=== PATIENT | female | born 1990 | race Caucasian/White ===

== ENCOUNTER 2016-12-26 06:56 | Emergency (ER) | payer OTHER ==
[~2016-12-26] VITALS: Ht 167.6 cm; Wt 81.6 kg
[~2016-12-26 06:56] MED LIST: ACET50TA PO; DOCU10ELUD PO; FERR325T3 PO; FIOR1CAP PO; IBUP80TA PO; LEVO125T3 PO; LEVO200T3 PO
[2016-12-26] MEDS ORDERED: NAPROXEN 250 MG TAB PO ONE (07:30)
[2016-12-26] MEDS ORDERED: MOBI7.5T10 PO (08:04)
[2016-12-26 08:11] VITALS: BP 135/87
--- NOTE | 2016-12-26 20:45 | REP ---
Right forearm series: Two views. History: Trauma. Findings: Two views of the right forearm demonstrate normal bones, joints, and soft tissues. No fracture or subluxation is seen. Impression: Negative right forearm views. Signed by Mansoor Stanley MD 12/27/2016 01:32 P
== END 2016-12-26 08:17 | disposition home or self-care (01) ==
LOC: M ED 07:23
DX: S50.11XA Contusion of right forearm, initial encounter (principal); W50.0XXA Accidental hit or strike by another person, initial encounter; Y92.239 Unspecified place in hospital as the place of occurrence of the external cause; Y93.89 Activity, other specified; Y99.0 Civilian activity done for income or pay; Z79.899 Other long term (current) drug therapy; Z91.040 Latex allergy status

== ENCOUNTER → 2016-12-28 | Outpatient (CLI) | payer OTHER ==
[~2016-12-28] MED LIST changes: +MOBI7.5T10 PO
[2016-12-28 10:44] LABS: ALKALINE PHOSPHATASE 43 U/L (45-117); ALT/SGPT 18 U/L (12-78); ANION GAP 6 MEQ/L (8-16); AST/SGOT 8 U/L (15-37); BILIRUBIN,TOTAL 0.7 MG/DL (0.2-1.0); BLOOD UREA NITROGEN 10 MG/DL (7-18); CALCIUM LEVEL 8.7 MG/DL (8.5-10.1); CARBON DIOXIDE LEVEL 26 MEQ/L (21-32); CHLORIDE LEVEL 108 MEQ/L (98-107); CHOLESTEROL LEVEL 172 MG/DL (<200); CREATININE FOR GFR 0.59 MG/DL (0.55-1.02); GLOMERULAR FILTRATION RATE > 60.0 (>60); GLUCOSE, FASTING 79 MG/DL (70-105); POTASSIUM SERUM 4.2 MEQ/L (3.5-5.1); SODIUM LEVEL 140 MEQ/L (136-145); TRIGLYCERIDES LEVEL 71 MG/DL (<150)
[2016-12-28 10:45] LABS: ALBUMIN 3.8 GM/DL (3.2-5.2); ALBUMIN/GLOBULIN RATIO 1.15 (1.00-1.93); THYROXINE (T4) 6.6 UG/DL (4.5-12.0); TOTAL PROTEIN 7.1 GM/DL (6.4-8.2)
== END ==
LOC: M LAB 09:31
PROVIDERS: ATTEND Physician Assistant Medical
DX: E03.9 Hypothyroidism, unspecified (principal); E78.2 Mixed hyperlipidemia; E55.9 Vitamin D deficiency, unspecified

== ENCOUNTER 2017-03-05 20:27 | Emergency (ER) | payer OTHER ==
[~2017-03-05] VITALS: Ht 167.6 cm; Wt 83.2 kg
[~2017-03-05 20:27] MED LIST changes: -LEVO125T3 PO; +LEVO125T4 PO; +MOBI4TAB PO; -MOBI7.5T10 PO
[2017-03-05 20:28] VITALS: BP 134/84
[2017-03-05] MEDS ORDERED: MAGICMW MT (21:26)
[2017-03-05] MEDS ORDERED: FLON1SPR (21:26)
[2017-03-05] MEDS ORDERED: MAGIC MOUTHWASH SUSPENSION BTL SS ONE (21:30)
[2017-03-05] MEDS: MAGIC MOUTHWASH SUSPENSION BTL SS ONE (21:30)
== END 2017-03-05 21:56 | disposition home or self-care (01) ==
LOC: M ED 20:27
DX: J06.9 Acute upper respiratory infection, unspecified (principal); J02.9 Acute pharyngitis, unspecified; Z91.040 Latex allergy status

== ENCOUNTER → 2017-05-09 | Outpatient (CLI) | payer OTHER ==
[~2017-05-09] MED LIST changes: +FLON1SPR; +MAGICMW MT
[2017-05-09 08:54] LABS: THYROXINE (T4) 6.1 UG/DL (4.5-12.0)
== END ==
LOC: M LAB 07:48
PROVIDERS: ATTEND Physician Assistant Medical
DX: E03.9 Hypothyroidism, unspecified (principal); E55.9 Vitamin D deficiency, unspecified

== ENCOUNTER 2017-06-20 01:26 | Emergency (ER) | payer OTHER, SELFPAY ==
[~2017-06-20] VITALS: Ht 167.6 cm; Wt 84.1 kg
[2017-06-20 01:26] VITALS: BP 132/88
[2017-06-20] MEDS ORDERED: MEDR4PAK PO (01:48)
[2017-06-20] MEDS ORDERED: AMOX500C PO (01:48)
[2017-06-20] MEDS ORDERED: AMOXICILLIN 500 MG CAP PO ONE (02:00)
[2017-06-20] MEDS ORDERED: IBUPROFEN 600 MG TAB PO ONE (02:00)
== END 2017-06-20 02:05 | disposition home or self-care (01) ==
LOC: M ED 01:26
DX: J02.0 Streptococcal pharyngitis (principal); E03.9 Hypothyroidism, unspecified; Z79.899 Other long term (current) drug therapy; Z91.040 Latex allergy status

== ENCOUNTER 2017-07-03 21:13 | Emergency (ER) | payer OTHER, SELFPAY ==
[~2017-07-03] VITALS: Ht 167.6 cm; Wt 83.6 kg
[~2017-07-03 21:13] MED LIST changes: +AMOX500C PO; +MEDR4PAK PO
[2017-07-03] MEDS ORDERED: NS 1,000 ML IV ONE (21:45)
[2017-07-03] MEDS ORDERED: METOCLOPRAMIDE INJ 10MG/2ML VIAL (J2765) IV ONE (21:45)
[2017-07-03] MEDS ORDERED: diphenhydrAMINE INJ 50MG/ML VIAL (J1200) IV ONE (21:45)
[2017-07-03] MEDS ORDERED: MORPHINE 4 MG/ML 1ML SYRINGE IV ONE (21:45)
[2017-07-03 22:43] LABS: BASO # 0.1 10^3/uL (0.0-0.2); BASO % 0.6 % (0.0-1.0); EOS # 0.4 10^3/uL (0.0-0.50); EOS % 2.4 % (0.0-3.0); IMMATURE GRANULOCYTE % 0.3 % (0-0); LYMPH # 3.2 10^3/uL (1.5-6.5); LYMPH % 18.3 % (24.0-44.0); MEAN CORPUSCULAR HEMOGLOBIN 28.1 pg (27.0-33.0); MEAN CORPUSCULAR HGB CONC 33.2 g/dl (32.0-36.5); MEAN CORPUSCULAR VOLUME 84.5 fl (80.0-96.0); MONO # 0.8 10^3/uL (0.0-0.8); MONO % 4.6 % (0.0-5.0); NEUTROPHILS # 12.7 10^3/uL (1.8-7.7); NEUTROPHILS % 73.8 % (36.0-66.0); PLATELET COUNT, AUTOMATED 415 10^3/uL (150-450); RED CELL DISTRIBUTION WIDTH 12.7 % (11.5-14.5); WHITE BLOOD COUNT 17.2 10^3/uL (4.0-10.0)
[2017-07-03 22:47] LABS: MUCUS, URINE RFX SMALL (NEGATIVE); SPECIFIC GRAVITY UR AUTO RFX 1.016 (1.002-1.035); SQUAM EPITHELIAL CELL UR AURFX 19 /HPF (0-6)
[2017-07-03 23:03] LABS: ANION GAP 8 MEQ/L (8-16); BLOOD UREA NITROGEN 6 MG/DL (7-18); CALCIUM LEVEL 8.7 MG/DL (8.5-10.1); CARBON DIOXIDE LEVEL 26 MEQ/L (21-32); CHLORIDE LEVEL 104 MEQ/L (98-107); CREATININE FOR GFR 0.64 MG/DL (0.55-1.02); GLOMERULAR FILTRATION RATE > 60.0 (>60); GLUCOSE, FASTING 88 MG/DL (70-105); POTASSIUM SERUM 3.6 MEQ/L (3.5-5.1); SODIUM LEVEL 138 MEQ/L (136-145)
--- NOTE | 2017-07-03 23:10 | REPUSA ---
CT of the head Clinical history: Headache. Comparison: 02/11/2013. Technique: Multiple axial CT images were obtained through the head without administration of contrast . Findings: The ventricles and sulci are symmetric bilaterally. There is no evidence of acute hemorrhag e or infarct. There is no midline shift, mass effect, or extra-axial fluid collection. The osseous st ructures are unremarkable. The visualized paranasal sinuses and mastoid air cells are clear. Impression: Negative study.
[2017-07-03 23:40] LABS: ERYTHROCYTE SEDIMENTATION RATE 33 mm/hr (0-20)
[2017-07-03] MEDS ORDERED: ZOFR4TAB3 PO (23:50)
[2017-07-03] MEDS ORDERED: CIPR-249 PO (23:50)
[2017-07-03 23:55] VITALS: BP 117/69
[2017-07-04] MEDS ORDERED: CIPROFLOXACIN 500 MG TAB PO ONE
[2017-07-04] MEDS ORDERED: NORCO 5/325MG TABLET (BULK FOR ED) PO ONE
== END 2017-07-04 00:06 | disposition home or self-care (01) ==
LOC: M ED 21:13
DX: J01.90 Acute sinusitis, unspecified (principal); I10 Essential (primary) hypertension
CPT/HCPCS: 70450; 80048; 81001; 81025; 85025; 85652; 86140; 87086; 96361; 96374; 96375; 99284; J1200; J2765

== ENCOUNTER → 2017-09-25 | Outpatient (CLI) | payer OTHER, MEDICAID ==
[2017-09-25 14:02] LABS: BASO # 0.1 10^3/uL (0.0-0.2); BASO % 0.9 % (0.0-1.0); EOS # 0.5 10^3/uL (0.0-0.50); EOS % 3.7 % (0.0-3.0); HEMATOCRIT 34.4 % (36.0-47.0); HEMOGLOBIN 11.4 g/dl (12.0-16.0); IMMATURE GRANULOCYTE % 0.5 % (0-3.0); LYMPH # 1.7 10^3/uL (1.5-6.5); LYMPH % 14.1 % (24.0-44.0); MEAN CORPUSCULAR HGB CONC 33.1 g/dl (32.0-36.5); MEAN CORPUSCULAR VOLUME 84.5 fl (80.0-96.0); MONO # 0.5 10^3/uL (0.0-0.8); MONO % 3.9 % (0.0-5.0); NEUTROPHILS # 9.4 10^3/uL (1.8-7.7); NEUTROPHILS % 76.9 % (36.0-66.0); PLATELET COUNT, AUTOMATED 364 10^3/uL (150-450); RED BLOOD COUNT 4.07 10^6/uL (4.00-5.40); WHITE BLOOD COUNT 12.2 10^3/uL (4.0-10.0)
[2017-09-25 16:04] LABS: CHLAMYDIA DNA AMPLIFICATION NEGATIVE (NEGATIVE); GC DNA AMPLIFICATION NEGATIVE (NEGATIVE)
[2017-09-26 10:14] LABS: LUTEINIZING HORMONE < 0.1 mIU/mL
[2017-09-26 10:25] LABS: RUBELLA IgG QUALITATIVE IMMUNE (IMMUNE)
[2017-09-26 10:40] LABS: FOLLICLE STIMULATING HORMONE < 0.3 mIU/mL
[2017-09-26 10:50] LABS: HBsAg Prenatal NEGATIVE (NEGATIVE)
[2017-09-26 10:54] LABS: HEPATITIS C VIRUS ABY INDEX 0.1 INDEX (<0.8)
[2017-09-26 10:55] LABS: HIV 1&2 SCREEN CENTAUR NEGATIVE (NEGATIVE)
== END ==
LOC: M SMT 10:19
DX: Z36.89 Encounter for other specified antenatal screening (principal); Z3A.13 13 weeks gestation of pregnancy
CPT/HCPCS: 83001

== ENCOUNTER → 2017-10-23 | Outpatient (CLI) | payer OTHER ==
[2017-10-23 22:02] LABS: FREE T4 0.86 NG/DL (0.76-1.46)
== END ==
LOC: M LAB 18:29
DX: E03.9 Hypothyroidism, unspecified (principal)
CPT/HCPCS: 84443

== ENCOUNTER → 2017-11-08 | Outpatient (REF) | payer OTHER | LOC: M LAB REF 13:21 | DX: Z34.82 Encounter for supervision of other normal pregnancy, second trimester (principal) ==

== ENCOUNTER 2017-12-05 12:41 | Inpatient (IN) | payer OTHER ==
[2017-12-05] MEDS: LACTATED RINGER'S 1000 ML IV (13:03)
[2017-12-05 13:20] LABS: HEMATOCRIT 30.1 % (36.0-47.0); HEMOGLOBIN 10.3 g/dl (12.0-15.5); MEAN CORPUSCULAR HEMOGLOBIN 29.2 pg (27.0-33.0); MEAN CORPUSCULAR HGB CONC 34.2 g/dl (32.0-36.5); MEAN CORPUSCULAR VOLUME 85.3 fl (80.0-96.0); PLATELET COUNT, AUTOMATED 329 10^3/uL (150-450); RED BLOOD COUNT 3.53 10^6/uL (4.00-5.40); RED CELL DISTRIBUTION WIDTH 13.7 % (11.5-14.5)
[2017-12-05] MEDS: MORPHINE 4 MG/ML 1ML VIAL/SYRINGE (J2270) IV (13:21)
[2017-12-05] MEDS: PROMETHAZINE INJ 25 MG/ML VIAL (J2550) IV (13:25)
[2017-12-05 13:26] LABS: APPEARANCE, URINE CLOUDY (CLEAR); BACTERIA, URINE AUTO 2+ (NEGATIVE); BILIRUBIN, URINE AUTO NEGATIVE (NEGATIVE); BLOOD, URINE BLOOD 2+ (NEGATIVE); COLOR, URINE YELLOW (YELLOW); GLUCOSE, URINE (UA) AUTO NEGATIVE (NEGATIVE); KETONE, URINE AUTO NEGATIVE (NEGATIVE); LEUKOCYTE ESTERASE, URINE AUTO 3+ (NEGATIVE); MUCUS, URINE SMALL (NEGATIVE); NITRITE, URINE AUTO NEGATIVE (NEGATIVE); PROTEIN, URINE AUTO 1+ mg/dL (NEGATIVE); RBC, URINE AUTO 39 /HPF (0-3); SPECIFIC GRAVITY URINE AUTO 1.008 (1.002-1.035); SQUAMOUS EPITHELIAL CELL UR AU 3 /HPF (0-6); UROBILINOGEN, URINE AUTO 0.2 mg/dL (0.0-2.0); WBC, URINE AUTO TNTC /HPF (0-3)
[2017-12-05] MEDS: LR 1,000 ML IV (14:05)
[2017-12-05] MEDS ORDERED: ONDANSETRON 4MG/2ML VIAL (J2405) As Ordered (14:59)
[2017-12-05] MEDS: ONDANSETRON 4MG/2ML VIAL (J2405) IV ×2 (15:10→22:56)
[2017-12-05] MEDS: MORPHINE 10 MG/ML 1ML VIAL (J2270) SC (15:10)
[2017-12-05] MEDS: MORPHINE 10 MG/ML 1ML VIAL (J2270) IV (15:11)
[2017-12-05] MEDS: TAMSULOSIN 0.4 MG CAP PO (17:28)
[2017-12-05] MEDS: cefTRIAXone SOD 1 GM in D5W MINI-BAG PLUS 50 ML IV (18:22)
[2017-12-05] MEDS: PERCOCET 5MG/325MG TAB PO ×2 (18:24→22:28)
[2017-12-05 21:02] LABS: ANION GAP 10 MEQ/L (8-16); BLOOD UREA NITROGEN 4 MG/DL (7-18); CALCIUM LEVEL 7.9 MG/DL (8.5-10.1); CARBON DIOXIDE LEVEL 21 MEQ/L (21-32); CHLORIDE LEVEL 107 MEQ/L (98-107); CREATININE FOR GFR 0.64 MG/DL (0.55-1.30); GLOMERULAR FILTRATION RATE > 60.0 (>60); GLUCOSE, FASTING 124 MG/DL (70-100); POTASSIUM SERUM 3.5 MEQ/L (3.5-5.1); SODIUM LEVEL 138 MEQ/L (136-145)
[2017-12-05 21:12] LABS: INR 1.07
[2017-12-05 21:13] LABS: PARTIAL THROMBOPLASTIN TIME 28.4 SECONDS (26.8-37.9)
[2017-12-05] MEDS: LEVOTHYROXINE 100MCG TABLET (0.1MG) PO (22:20)
[2017-12-05] MEDS: NS 500 ML IV (23:45)
[2017-12-05] MEDS: ACETAMINOPHEN 500 MG TAB PO (23:53)
[2017-12-06] MEDS: ONDANSETRON 4MG/2ML VIAL (J2405) IV (02:47)
[2017-12-06] MEDS: PERCOCET 5MG/325MG TAB PO ×3 (02:48→18:03)
[2017-12-06 06:50] LABS: HEMATOCRIT 26.2 % (36.0-47.0); HEMOGLOBIN 8.9 g/dl (12.0-15.5); MEAN CORPUSCULAR HEMOGLOBIN 29.3 pg (27.0-33.0); MEAN CORPUSCULAR VOLUME 86.2 fl (80.0-96.0); PLATELET COUNT, AUTOMATED 238 10^3/uL (150-450); RED BLOOD COUNT 3.04 10^6/uL (4.00-5.40); RED CELL DISTRIBUTION WIDTH 13.8 % (11.5-14.5); WHITE BLOOD COUNT 23.1 10^3/uL (4.0-10.0)
[2017-12-06] MEDS: NS 1,000 ML IV ×2 (07:00→22:18)
[2017-12-06] MEDS ORDERED: LIDOCAINE 1% MDV 20ML VIAL As Ordered (09:59)
[2017-12-06] MEDS ORDERED: ISOVUE-300 61% 50ML VIAL (Q9967) As Ordered (10:00)
[2017-12-06] MEDS ORDERED: fentaNYL 100 MCG/2 ML INJECTION (J3010) As Ordered ×2 (10:12→10:48)
[2017-12-06] MEDS: ACETAMINOPHEN 500 MG TAB PO (11:41)
[2017-12-06] MEDS ORDERED: ACETAMINOPHEN 500 MG TAB As Ordered (11:44)
[2017-12-06] MEDS: MORPHINE 4 MG/ML 1ML VIAL/SYRINGE (J2270) IV ×2 (12:47→14:55)
[2017-12-06] MEDS: cefTRIAXone SOD 1 GM in D5W MINI-BAG PLUS 50 ML IV (18:03)
[2017-12-06] MEDS: TAMSULOSIN 0.4 MG CAP PO (18:03)
[2017-12-06] MEDS: LEVOTHYROXINE 100MCG TABLET (0.1MG) PO (22:18)
[2017-12-06] MEDS: diphenhydrAMINE 25 MG CAP PO (22:32)
[2017-12-07] MEDS: NS 1,000 ML IV ×3 (00:30→18:16)
[2017-12-07] MEDS: PERCOCET 5MG/325MG TAB PO ×3 (00:48→20:22)
[2017-12-07] MEDS: ONDANSETRON 4MG/2ML VIAL (J2405) IV ×2 (04:35→20:21)
[2017-12-07] MEDS: MORPHINE 4 MG/ML 1ML VIAL/SYRINGE (J2270) IV ×4 (04:36→22:58)
[2017-12-07 08:00] LABS: HEMATOCRIT 24.1 % (36.0-47.0); MEAN CORPUSCULAR HEMOGLOBIN 29.3 pg (27.0-33.0); MEAN CORPUSCULAR HGB CONC 33.2 g/dl (32.0-36.5); MEAN CORPUSCULAR VOLUME 88.3 fl (80.0-96.0); PLATELET COUNT, AUTOMATED 217 10^3/uL (150-450); RED BLOOD COUNT 2.73 10^6/uL (4.00-5.40); RED CELL DISTRIBUTION WIDTH 14.1 % (11.5-14.5); WHITE BLOOD COUNT 12.1 10^3/uL (4.0-10.0)
[2017-12-07] MEDS: TAMSULOSIN 0.4 MG CAP PO (09:24)
[2017-12-07] MEDS: ACETAMINOPHEN 500 MG TAB PO ×2 (10:17→17:27)
[2017-12-07] MEDS: cefTRIAXone SOD 1 GM in D5W MINI-BAG PLUS 50 ML IV (18:15)
[2017-12-07] MEDS: LEVOTHYROXINE 100MCG TABLET (0.1MG) PO (20:39)
[2017-12-07] MEDS: valACYclovir HCL 500 MG TAB PO (22:51)
[2017-12-08] MEDS: ONDANSETRON 4MG/2ML VIAL (J2405) IV (02:46)
[2017-12-08] MEDS: PERCOCET 5MG/325MG TAB PO ×2 (02:47→08:06)
[2017-12-08] MEDS: MORPHINE 4 MG/ML 1ML VIAL/SYRINGE (J2270) IV (03:19)
[2017-12-08] MEDS: valACYclovir HCL 500 MG TAB PO (08:04)
[2017-12-08] MEDS ORDERED: valACYclovir HCL 500 MG TAB PO (09:00)
== END 2017-12-08 08:10 | disposition home or self-care (01) | DRG 951 ==
LOC: M LDO 12:41 → M LDI 12-06 07:28 → M OBS 12-07 08:03
PROC: 0T9030Z Drainage of Right Kidney with Drainage Device, Percutaneous Approach (ICD-10-PCS; principal; 2017-12-06)
DX: O23.02 Infections of kidney in pregnancy, second trimester (principal); N13.30 Unspecified hydronephrosis; Z3A.23 23 weeks gestation of pregnancy; E03.9 Hypothyroidism, unspecified; O99.282 Endocrine, nutritional and metabolic diseases complicating pregnancy, second trimester; N10 Acute pyelonephritis

== ENCOUNTER 2017-12-25 20:22 | Outpatient (CLI) | payer OTHER ==
[2017-12-25] MEDS ORDERED: MORPHINE 4 MG/ML 1ML VIAL/SYRINGE (J2270) IV (21:00)
[2017-12-25] MEDS ORDERED: PROMETHAZINE INJ 25 MG/ML VIAL (J2550) IV (21:00)
== END 2017-12-25 22:23 | disposition home or self-care (01) ==
LOC: M LDO 20:22
DX: O26.832 Pregnancy related renal disease, second trimester (principal); Z43.6 Encounter for attention to other artificial openings of urinary tract; O99.282 Endocrine, nutritional and metabolic diseases complicating pregnancy, second trimester; Z79.2 Long term (current) use of antibiotics; Z79.899 Other long term (current) drug therapy; Z3A.26 26 weeks gestation of pregnancy
CPT/HCPCS: 59025

== ENCOUNTER → 2018-01-02 | Outpatient (CLI) | payer OTHER ==
[2018-01-02 12:28] LABS: HEMATOCRIT 29.3 % (36.0-47.0); HEMOGLOBIN 9.9 g/dl (12.0-15.5); MEAN CORPUSCULAR HEMOGLOBIN 28.3 pg (27.0-33.0); MEAN CORPUSCULAR HGB CONC 33.8 g/dl (32.0-36.5); MEAN CORPUSCULAR VOLUME 83.7 fl (80.0-96.0); PLATELET COUNT, AUTOMATED 352 10^3/uL (150-450); RED CELL DISTRIBUTION WIDTH 13.6 % (11.5-14.5); WHITE BLOOD COUNT 11.2 10^3/uL (4.0-10.0)
== END ==
LOC: M LAB 11:59
DX: Z34.82 Encounter for supervision of other normal pregnancy, second trimester (principal); Z36.89 Encounter for other specified antenatal screening
CPT/HCPCS: 85027

== ENCOUNTER → 2018-01-02 | Outpatient (CLI) | payer OTHER ==
[2018-01-02 13:04] LABS: ALT/SGPT 20 U/L (12-78); AST/SGOT 9 U/L (7-37); BILIRUBIN,TOTAL 0.2 MG/DL (0.2-1.0); CREATININE FOR GFR 0.44 MG/DL (0.55-1.30); FREE T4 0.73 NG/DL (0.76-1.46); GLOMERULAR FILTRATION RATE > 60.0 (>60); LDH LACTATE DEHYDROGENASE 132 U/L (84-246); URIC ACID 4.1 MG/DL (2.6-6.0)
== END ==
LOC: M LAB 11:54
DX: Z34.82 Encounter for supervision of other normal pregnancy, second trimester (principal); Z36.89 Encounter for other specified antenatal screening
CPT/HCPCS: 84460

== ENCOUNTER → 2018-01-03 | Outpatient (CLI) | payer OTHER ==
[~2018-01-03] MED LIST changes: -ACET50TA PO; -AMOX500C PO; -DOCU10ELUD PO; -FERR325T3 PO; -FIOR1CAP PO; -FLON1SPR; -IBUP80TA PO; +ISOVUE-300 61% 50ML VIAL (Q9967) As Ordered; -LEVO125T4 PO; -LEVO200T3 PO; +LIDOCAINE 2% MDV 20 ML VIAL As Ordered; -MAGICMW MT; -MEDR4PAK PO; -MOBI4TAB PO
== END ==
LOC: M RADPRO 14:02
DX: N13.30 Unspecified hydronephrosis (principal); Z79.899 Other long term (current) drug therapy; Z91.040 Latex allergy status
CPT/HCPCS: 50435

== ENCOUNTER 2018-01-12 22:38 | Emergency (ER) | payer OTHER ==
[2018-01-13] MEDS ORDERED: NEOSPORIN OINT 0.9 GM PKT (FLOOR STOCK) As Ordered (00:18)
[2018-01-13] MEDS ORDERED: NEOSPORIN TOP OINT 15GM TOP (00:30)
[2018-01-13] MEDS: NEOSPORIN OINT 0.9 GM PKT (FLOOR STOCK) TOP (00:59)
== END 2018-01-13 02:19 | disposition home or self-care (01) ==
LOC: M ED 22:38
DX: T83.092A Other mechanical complication of nephrostomy catheter, initial encounter (principal); Y92.9 Unspecified place or not applicable; Y93.9 Activity, unspecified; N13.30 Unspecified hydronephrosis; Z79.899 Other long term (current) drug therapy; Z91.040 Latex allergy status
CPT/HCPCS: 99283

== ENCOUNTER 2018-01-15 13:26 | Outpatient (CLI) | payer OTHER | END 2018-01-15 15:09 | disposition home or self-care (01) | LOC: M LDO 13:26 | DX: O26.893 Other specified pregnancy related conditions, third trimester (principal); Z3A.29 29 weeks gestation of pregnancy; Z98.890 Other specified postprocedural states; N13.30 Unspecified hydronephrosis | CPT/HCPCS: 59025 ==

== ENCOUNTER → 2018-01-15 | Outpatient (CLI) | payer OTHER ==
[~2018-01-15] MED LIST changes: -LIDOCAINE 2% MDV 20 ML VIAL As Ordered
== END ==
LOC: M RAD 11:51
DX: N13.30 Unspecified hydronephrosis (principal)
CPT/HCPCS: Q9967

== ENCOUNTER 2018-01-25 21:39 | Outpatient (CLI) | payer OTHER ==
[2018-01-25] MEDS: PERCOCET 5MG/325MG TAB PO (22:30)
[2018-01-25 23:47] LABS: BASO # 0.1 10^3/uL (0.0-0.2); BASO % 0.8 % (0.0-1.0); EOS # 0.7 10^3/uL (0.0-0.50); EOS % 5.1 % (0.0-3.0); HEMATOCRIT 29.5 % (36.0-47.0); HEMOGLOBIN 9.7 g/dl (12.0-15.5); IMMATURE GRANULOCYTE % 0.4 % (0-3.0); LYMPH % 22.3 % (24.0-44.0); MEAN CORPUSCULAR HGB CONC 32.9 g/dl (32.0-36.5); MEAN CORPUSCULAR VOLUME 82.2 fl (80.0-96.0); MONO # 0.8 10^3/uL (0.0-0.8); MONO % 5.6 % (0.0-5.0); NEUTROPHILS # 8.9 10^3/uL (1.8-7.7); NEUTROPHILS % 65.8 % (36.0-66.0); PLATELET COUNT, AUTOMATED 375 10^3/uL (150-450); RED BLOOD COUNT 3.59 10^6/uL (4.00-5.40); RED CELL DISTRIBUTION WIDTH 13.7 % (11.5-14.5); WHITE BLOOD COUNT 13.6 10^3/uL (4.0-10.0)
[2018-01-26 00:15] LABS: ANION GAP 8 MEQ/L (8-16); BLOOD UREA NITROGEN 5 MG/DL (7-18); CALCIUM LEVEL 8.2 MG/DL (8.5-10.1); CARBON DIOXIDE LEVEL 22 MEQ/L (21-32); CHLORIDE LEVEL 108 MEQ/L (98-107); CREATININE FOR GFR 0.56 MG/DL (0.55-1.30); GLOMERULAR FILTRATION RATE > 60.0 (>60); GLUCOSE, FASTING 86 MG/DL (70-100); POTASSIUM SERUM 3.7 MEQ/L (3.5-5.1); SODIUM LEVEL 138 MEQ/L (136-145)
[2018-01-26] MEDS: CEPHALEXIN 500 MG CAP PO ×2 (01:04→07:42)
[2018-01-26] MEDS: PERCOCET 5MG/325MG TAB PO (04:13)
[2018-01-26 09:24] LABS: ANION GAP 8 MEQ/L (8-16); BLOOD UREA NITROGEN 4 MG/DL (7-18); CALCIUM LEVEL 8.2 MG/DL (8.5-10.1); CARBON DIOXIDE LEVEL 24 MEQ/L (21-32); CHLORIDE LEVEL 110 MEQ/L (98-107); CREATININE FOR GFR 0.42 MG/DL (0.55-1.30); GLOMERULAR FILTRATION RATE > 60.0 (>60); GLUCOSE, FASTING 73 MG/DL (70-100); POTASSIUM SERUM 3.8 MEQ/L (3.5-5.1); SODIUM LEVEL 142 MEQ/L (136-145)
== END 2018-01-26 10:30 | disposition home or self-care (01) ==
LOC: M LDO 21:39
DX: O99.89 Other specified diseases and conditions complicating pregnancy, childbirth and the puerperium (principal); Z3A.30 30 weeks gestation of pregnancy; N13.39 Other hydronephrosis; O99.283 Endocrine, nutritional and metabolic diseases complicating pregnancy, third trimester; Z91.040 Latex allergy status
CPT/HCPCS: 76775

== ENCOUNTER → 2018-01-29 | Outpatient (CLI) | payer OTHER ==
[~2018-01-29] MED LIST changes: +MIDAZOLAM INJ 2 MG/2 ML VIAL (J2250) As Ordered; +NORCO, ANEXSIA 5/325MG TABLET (HYDROcodone/ACETAMINOPHEN) As Ordered; +ONDANSETRON 4MG/2ML VIAL (J2405) As Ordered; +fentaNYL 100 MCG/2 ML INJECTION (J3010) As Ordered; +fentaNYL 100 MCG/2 ML INJECTION (J3010) IV
[2018-01-29] MEDS: fentaNYL 100 MCG/2 ML INJECTION (J3010) IV ×8 (15:30→16:10)
[2018-01-29] MEDS: NORCO, ANEXSIA 5/325MG TABLET (HYDROcodone/ACETAMINOPHEN) PO ×2 (15:40→16:10)
[2018-01-29] MEDS: ONDANSETRON 4MG/2ML VIAL (J2405) IV (15:45)
== END ==
LOC: M RADPRO 13:07
DX: N13.39 Other hydronephrosis (principal); Z3A.31 31 weeks gestation of pregnancy; Z79.899 Other long term (current) drug therapy; Z91.040 Latex allergy status
CPT/HCPCS: 50435

== ENCOUNTER → 2018-02-08 | Outpatient (CLI) | payer OTHER ==
[2018-02-08 12:07] LABS: GLUCOSE CHALLENGE TEST 1 HOUR 70 MG/DL (LESS THAN 140)
== END ==
LOC: M LAB 09:59
DX: Z34.82 Encounter for supervision of other normal pregnancy, second trimester (principal); Z3A.00 Weeks of gestation of pregnancy not specified
CPT/HCPCS: 82950

== ENCOUNTER 2018-02-14 21:55 | Outpatient (CLI) | payer OTHER ==
[2018-02-14] MEDS: ACETAMINOPHEN 500 MG TAB PO (23:42)
== END 2018-02-15 00:35 | disposition home or self-care (01) ==
LOC: M LDO 21:55
DX: O26.893 Other specified pregnancy related conditions, third trimester (principal); Z3A.34 34 weeks gestation of pregnancy; O26.833 Pregnancy related renal disease, third trimester; Z93.6 Other artificial openings of urinary tract status; N13.39 Other hydronephrosis; O99.283 Endocrine, nutritional and metabolic diseases complicating pregnancy, third trimester; E03.9 Hypothyroidism, unspecified
CPT/HCPCS: 59025

== ENCOUNTER 2018-02-16 21:40 | Outpatient (CLI) | payer OTHER | END 2018-02-16 22:37 | disposition home or self-care (01) | LOC: M LDO 21:40 | DX: O36.8130 Decreased fetal movements, third trimester, not applicable or unspecified (principal); O47.03 False labor before 37 completed weeks of gestation, third trimester; Z3A.34 34 weeks gestation of pregnancy | CPT/HCPCS: 59025 ==

== ENCOUNTER → 2018-02-27 | Outpatient (CLI) | payer OTHER | LOC: M RAD 06:22 | DX: Z36.89 Encounter for other specified antenatal screening (principal); O41.03X1 Oligohydramnios, third trimester, fetus 1; Z3A.35 35 weeks gestation of pregnancy | CPT/HCPCS: 76815 ==

== ENCOUNTER → 2018-03-07 | Outpatient (CLI) | payer OTHER | LOC: M RAD 08:42 | DX: N13.30 Unspecified hydronephrosis (principal); Z93.6 Other artificial openings of urinary tract status | CPT/HCPCS: 74176 ==

== ENCOUNTER 2018-05-24 08:42 | Day surgery (SDC) | payer OTHER ==
[2018-05-24] MEDS ORDERED: LIDOCAINE 2% INJ 100 MG/5 ML SDV (FOR ANES.) As Ordered (09:28)
[2018-05-24] MEDS ORDERED: dexameTHASONE 4 MG/ML 1ML VIAL (J1100) As Ordered (09:28)
[2018-05-24] MEDS ORDERED: NEOSTIGMINE 10 MG/10 ML VIAL (J2710) As Ordered (09:28)
[2018-05-24] MEDS ORDERED: ONDANSETRON 4MG/2ML VIAL (J2405) As Ordered (09:28)
[2018-05-24] MEDS ORDERED: GLYCOPYRROLATE INJ 0.2 MG/ML 2 ML VIAL As Ordered (09:28)
[2018-05-24] MEDS ORDERED: fentaNYL 100 MCG/2 ML INJECTION (J3010) As Ordered ×2 (09:28→11:48)
[2018-05-24] MEDS ORDERED: PROPOFOL 200 MG/20 ML VIAL As Ordered (09:28)
[2018-05-24] MEDS ORDERED: ROCURONIUM BROMIDE 50 MG/5 ML VIAL As Ordered (09:28)
[2018-05-24] MEDS ORDERED: MIDAZOLAM INJ 2 MG/2 ML VIAL (J2250) As Ordered (09:28)
[2018-05-24] MEDS: LR 1,000 ML IV (09:30)
[2018-05-24 09:46] LABS: HEMATOCRIT 33.3 % (36.0-47.0); HEMOGLOBIN 10.4 g/dl (12.0-15.5); MEAN CORPUSCULAR HEMOGLOBIN 25.2 pg (27.0-33.0); MEAN CORPUSCULAR HGB CONC 31.2 g/dl (32.0-36.5); MEAN CORPUSCULAR VOLUME 80.6 fl (80.0-96.0); PLATELET COUNT, AUTOMATED 412 10^3/uL (150-450); RED BLOOD COUNT 4.13 10^6/uL (4.00-5.40); RED CELL DISTRIBUTION WIDTH 15.4 % (11.5-14.5)
[2018-05-24] MEDS ORDERED: SILVER NITRATE APPLICATOR As Ordered (10:09)
[2018-05-24 10:28] LABS: CONTROL LINE HCG INT CTR LINE PRESENT; HCG, SERUM QUALITATIVE NEGATIVE (NEGATIVE)
[2018-05-24] MEDS ORDERED: KETOROLAC 60 MG/2 ML VIAL (J1885) As Ordered (10:51)
[2018-05-24] MEDS: BUPIVACAINE HCL 0.25% 30 ML VIAL As Ordered (11:11)
[2018-05-24] MEDS ORDERED: NORCO, ANEXSIA 5/325MG TABLET (HYDROcodone/ACETAMINOPHEN) As Ordered (11:48)
[2018-05-24] MEDS: NORCO, ANEXSIA 5/325MG TABLET (HYDROcodone/ACETAMINOPHEN) PO ×2 (11:50→12:28)
[2018-05-24] MEDS: fentaNYL 100 MCG/2 ML INJECTION (J3010) IV ×4 (11:50→12:05)
[2018-05-24] MEDS ORDERED: ONDANSETRON 4MG/2ML VIAL (J2405) IV (12:00)
[2018-05-24] MEDS ORDERED: LR 1,000 ML IV (12:00)
== END 2018-05-24 13:54 | disposition home or self-care (01) ==
LOC: M SDC 08:42
DX: Z30.2 Encounter for sterilization (principal); F32.9 Major depressive disorder, single episode, unspecified; E03.9 Hypothyroidism, unspecified; Z91.040 Latex allergy status; Z79.899 Other long term (current) drug therapy
CPT/HCPCS: 58661

== ENCOUNTER 2019-03-18 21:29 | Emergency (ER) | payer OTHER, SELFPAY ==
[~2019-03-18] VITALS: Ht 170.2 cm; Wt 90.7 kg
[~2019-03-18 21:29] MED LIST changes: +AMOX500C PO; +CEPH250T PO; +CIPR-249 PO; +COLA100C5 PO; +DIFL150T PO; +DOCU5LIQ PO; +FERR325T3 PO; +FIOR1CAP PO; +FLON1SPR; +IBUP-1114 PO; +IBUP80TA PO; -ISOVUE-300 61% 50ML VIAL (Q9967) As Ordered; +KEFL500C17 PO; +LEVO125T4 PO; +LEVO200T3 PO; +LEVO200T4 PO; +LEVO25TA5 PO; +MAGICMW MT; +MAPA500T17 PO; +MEDR4PAK PO; -MIDAZOLAM INJ 2 MG/2 ML VIAL (J2250) As Ordered; +MOBI4TAB PO; -NORCO, ANEXSIA 5/325MG TABLET (HYDROcodone/ACETAMINOPHEN) As Ordered; -ONDANSETRON 4MG/2ML VIAL (J2405) As Ordered; +OXYC1TAB23 PO; +PERCOCET PO; +PRENTAB9 PO; +VALT500T PO; +ZOFR4TAB14 PO; +ZOLO50TA PO; +birth control pills PO; -fentaNYL 100 MCG/2 ML INJECTION (J3010) As Ordered; -fentaNYL 100 MCG/2 ML INJECTION (J3010) IV
[2019-03-18] MEDS ORDERED: EPINEPHrine INJ 1 MG/ML 1ML AMP IM STA (21:33)
[2019-03-18] MEDS ORDERED: FAMOTIDINE INJ 20MG/2ML VIAL (S0028) As Ordered ONE ×2 (21:34→21:41)
[2019-03-18] MEDS ORDERED: diphenhydrAMINE INJ 50MG/ML VIAL (J1200) As Ordered ONE (21:34)
[2019-03-18] MEDS ORDERED: methylPREDNISolone INJ 125 MG/2 ML VIAL (J2930) As Ordered ONE (21:35)
[2019-03-18] MEDS ORDERED: EPINEPHrine INJ 1 MG/ML 1ML AMP As Ordered ONE (21:35)
[2019-03-18] MEDS ORDERED: diphenhydrAMINE INJ 50MG/ML VIAL (J1200) IV ONE (21:45)
[2019-03-18] MEDS ORDERED: FAMOTIDINE IV BAG 20 MG in APPROPRIATE DILUENT 1 EA IV ONE (21:45)
[2019-03-18] MEDS ORDERED: methylPREDNISolone INJ 125 MG/2 ML VIAL (J2930) IV ONE (21:45)
[2019-03-19] MEDS ORDERED: EPIP0.3I2 IM (03:57)
[2019-03-19 04:15] VITALS: BP 120/85
== END 2019-03-19 04:16 | disposition home or self-care (01) ==
LOC: M ED 21:29
DX: T78.02XA Anaphylactic reaction due to shellfish (crustaceans), initial encounter (principal); R06.02 Shortness of breath; R22.0 Localized swelling, mass and lump, head; X58.XXXA Exposure to other specified factors, initial encounter; Y92.89 Other specified places as the place of occurrence of the external cause; F32.9 Major depressive disorder, single episode, unspecified; Z79.899 Other long term (current) drug therapy
CPT/HCPCS: 93041; 96372; 96374; 96375; 99285; J1200; J2930